=== PATIENT | female | born 2005 | race African-American/Black ===

== ENCOUNTER 2024-12-29 10:34 | Emergency (ER) | payer OTHER ==
[~2024-12-29] VITALS: Ht 170.2 cm; Wt 75.4 kg
[2024-12-29 11:33] LABS: BASO # 0.0 10^3/uL (0.0-0.2); BASO % 0.2 % (0.0-1.0); EOS # 0.1 10^3/uL (0.0-0.5); EOS % 1.9 % (0.0-3.0); LYMPH # 2.5 10^3/uL (1.5-5.0); LYMPH % 52.7 % (24.0-44.0); MONO # 0.4 10^3/uL (0.0-0.8); MONO % 8.2 % (2.0-8.0); NEUTROPHILS # 1.7 10^3/uL (1.5-8.5); NEUTROPHILS % 36.8 % (36.0-66.0); PLATELET COUNT, AUTOMATED 284 10^3/uL (150-450)
[2024-12-29 12:00] LABS: HCG, SERUM QUALITATIVE NEGATIVE (NEGATIVE)
[2024-12-29 14:22] VITALS: BP 108/69; TEMP 98.2; O2SAT 98
== END 2024-12-29 14:24 | disposition home or self-care (01) ==
LOC: M ED 10:34
DX: N93.8 Other specified abnormal uterine and vaginal bleeding (principal); N83.12 Corpus luteum cyst of left ovary